=== PATIENT | male | born 1970 | race Two or more races ===

== ENCOUNTER 2024-04-24 13:19 | Emergency (ER) | payer OTHER ==
[~2024-04-24] VITALS: Ht 165.1 cm; Wt 77.1 kg
[2024-04-24 15:59] LABS: HEMATOCRIT 43.9 % (39.0-48.0); HEMOGLOBIN 15.2 g/dL (13-16.00); MEAN CELL VOLUME 91.5 fL (80.0-100.00); MEAN CORPUSCULAR HEMOGLOBIN 31.7 pg (27.00-32.0); MEAN CORPUSCULAR HGB CONC 34.6 g/dl (32.0-36.0); PLATELET COUNT 243 K/uL (150-450); RED BLOOD COUNT 4.79 M/uL (4.00-6.00); RED CELL DISTRIBUTION WIDTH 13.7 % (11.5-14.5)
[2024-04-24] MEDS ORDERED: GILTUSS COUGH-118 M1 PO (16:18)
[2024-04-24] MEDS ORDERED: OSEL75CA PO (16:18)
== END 2024-04-24 16:55 | disposition home or self-care (01) ==
LOC: ER 13:21
PROVIDERS: Preventive Medicine Public Health & General Preventive Medicine
DX: J10.1 Influenza due to other identified influenza virus with other respiratory manifestations (principal); I10 Essential (primary) hypertension